=== PATIENT | female | born 1970 | race African-American/Black ===

== ENCOUNTER 2017-01-18 10:21 | Emergency (ER) | payer BC ==
--- NOTE | 2017-01-18 12:07 | CT ---
EXAMINATION: Non contrast CT head. Coronal and sagittal reformats. HISTORY: Knocked unconscious FINDINGS: No evidence of intra or extra axial hemorrhage, mass, midline shift, hydrocephalus or edema. There is a single left periventricular hypodensity. No hypoattenuation changes in the major vascular territories to suggest acute infarct. No abnormal intracranial calcifications are detected. No evidence of substantial vascular calcifica tions. Paranasal sinuses and mastoid air cells are well aerated without substantial findings. Nora bullo sa are noted within the middle turbinates. The orbits and globes are symmetric. Pituitary fossa appears unremarkable. Calvarium is intact. No evidence of skull fracture. IMPRESSION: 1. No acute intracranial findings. 2. Single nonspecific left periventricular hypodensity, possibly early small vessel ischemic changes .
--- NOTE | 2017-01-18 12:13 | CR ---
EXAMINATION: Cervical spine HISTORY: Pain COMPARISON: None TECHNIQUE: AP and lateral views FINDINGS: The cervical spinal alignment is normal. The vertebral body heights and disc spaces appear well-maintained. There is no fracture or dislocation. Facet alignment is normal. Bone mineralizatio n is normal. No acute osseous abnormality demonstrated. IMPRESSION: Grossly unremarkable cervical spine.
--- NOTE | 2017-01-18 12:15 | CR ---
EXAMINATION: Right hand HISTORY: Pain COMPARISON: None TECHNIQUE: 2 views FINDINGS/IMPRESSION: There is no acute osseous abnormality, dislocation, or fracture identified. Bon e mineralization and joint spaces appear normal. The radiocarpal alignment is preserved.
--- NOTE | 2017-01-18 12:19 | EDM.PDOC ---
ED HPI GENERAL MEDICAL PROBLEM - General Chief Complaint: Neck Problem Stated Complaint: PT FELT AND NECK,BACK HURTING Time Seen by Provider: 01/18/17 10:35 Source of Information: Reports: Patient History Limitations: Reports: No limitations - History of Present Illness INITIAL COMMENTS - FREE TEXT/NARRATIVE: History of present illness: [46-year-old female presenting status post slip and fall. Patient indicates she fell backwards striking her head with her arms outstretched. Patient indicates she does not know how long she left leg there your how she got up but when she went to work she noticed her lower back her her right hand her her neck hurts and she is slightly confused about how she even got work.] Review of systems: As per history of present illness and below otherwise all systems reviewed and negative. Past medical history: As per history of present illness and as reviewed below otherwise noncontributory. Surgical history: As per history of present illness and as reviewed below otherwise noncontributory. Social history: No reported history of drug or alcohol abuse. Family history: As per history of present illness and as reviewed below otherwise noncontributory. Physical exam: HEENT: Atraumatic, normocephalic, pupils reactive, negative for conjunctival pallor or scleral icterus, mucous membranes moist, throat clear, neck supple, nontender, trachea midline. Lungs: Clear to auscultation, breath sounds equal bilaterally, chest nontender. Heart: S1S2, regular, negative for clicks, rubs, or JVD. Abdomen: Soft, nondistended, nontender. Negative for masses or hepatosplenomegaly. Negative for costovertebral tenderness. Pelvis: Stable nontender. Genitourinary: Deferred. Rectal: Deferred. Extremities: Atraumatic, negative for cords or calf pain. Neurovascular unremarkable. Neuro: Awake, alert, oriented. Cranial nerves II through XII unremarkable. Cerebellum unremarkable. Motor and sensory unremarkable throughout. Exam nonfocal. Radiographic studies are negative for acute changes. Diagnostics: [X-ray of neck/C-spine right hand, and CT of head] Therapeutics: [] Impression: [Contusion] Plan: [Muscle relaxer, steroid, OTC pain medicine] Definitive disposition and diagnosis as appropriate pending reevaluation and review of above. Back Pain Score (Numeric/FACES): 10 - Related Data Allergies Allergy/AdvReac Type Severity Reaction Status Date / Time No Known Allergies Allergy Verified 11/22/15 09:34 Home Meds: Home Meds Losartan [Cozaar] 100 mg PO DAILY 01/18/17 [History] Orphenadrine [Norflex] 100 mg PO BID #28 tab.er 01/18/17 [Rx] amLODIPine Besylate [Amlodipine Besylate] 5 mg PO DAILY 01/18/17 [History] methylPREDNISolone [Medrol] 4 mg PO DAILY #21 tab.ds.pk 01/18/17 [Rx] Past Medical History Cardiovascular History: Reports: Hypertension [employer] History: Reports: Ectopic Social & Family History - Family History Family Medical History: Noncontributory - Tobacco Use Smoking Status *Q: Never Smoker Second Hand Smoke Exposure: No - Caffeine Use Caffeine Use: Reports: None - Recreational Drug Use Recreational Drug Use: No - Living Situation & Occupation Living situation: Reports: (5 children) ED ROS GENERAL - Review of Systems Review Of Systems: See Below (See history of present illness) ED EXAM, GENERAL - Physical Exam Exam: See Below (History of present illness) Course - Vital Signs Last Recorded V/S: Last Vital Signs Temp 37.1 C 01/18/17 10:40 Pulse 78 01/18/17 10:40 Resp 18 01/18/17 10:40 BP 141/89 H 01/18/17 10:40 Pulse Ox 96 01/18/17 10:40 - Orders/Labs/Meds Orders: Active Orders 24 hr Category Date Time Status Cervical Spine 2V or 3V [CR] Stat Exams 01/18/17 10:35 Taken Hand 2V Rt [CR] Stat Exams 01/18/17 10:36 Ordered Head wo Cont [CT] Stat Exams 01/18/17 10:35 Ordered Labs: Laboratory Tests 01/18/17 Range/Units 11:03 Urine HCG, Qual NEGATIVE (NEGATIVE) Departure - Departure Time of Disposition: 12:21 Disposition: Home, Self-Care 01 Condition: good Clinical Impression: Contusion Instructions: Cervical Sprain, [id number] Forms: ED Department Discharge Additional Instructions: The following information is given to patients seen in the emergency department who are being discharged to home. This information is to outline your options for follow-up care. We provide all patients seen in our emergency department with a follow-up referral. The need for follow-up, as well as the timing and circumstances, are variable depending upon the specifics of your emergency department visit. If you don't have a primary care physician on staff, we will provide you with a referral. We always advise you to contact your personal physician following an emergency department visit to inform them of the circumstance of the visit and for follow-up with them and/or the need for any referrals to a consulting specialist. The emergency department will also refer you to a specialist when appropriate. This referral assures that you have the opportunity for follow-up care with a specialist. All of these measure are taken in an effort to provide you with optimal care, which includes your follow-up. Under all circumstances we always encourage you to contact your private physician who remains a resource for coordinating your care. When calling for follow-up care, please make the office aware that this follow-up is from your recent emergency room visit. If for any reason you are refused follow-up, please contact the [facility] Emergency Department at and asked to speak to the emergency department charge nurse. Take medication as directed Followup with PCP 1-2 days Return to ED as needed as discussed - My Orders Last 24 Hours: My Active Orders 01/18/17 10:35 Cervical Spine 2V or 3V [CR] Stat Head wo Cont [CT] Stat 01/18/17 10:36 Hand 2V Rt [CR] Stat - Assessment/Plan Last 24 Hours: My Active Orders 01/18/17 10:35 Cervical Spine 2V or 3V [CR] Stat Head wo Cont [CT] Stat 01/18/17 10:36 Hand 2V Rt [CR] Stat
[2017-01-18 19:46] VITALS: BP 123/78
== END 2017-01-18 12:28 | disposition home or self-care (01) ==
LOC: MW.ED 10:21
DX: S30.0XXA Contusion of lower back and pelvis, initial encounter (principal); I10 Essential (primary) hypertension; Z79.899 Other long term (current) drug therapy; W01.0XXA Fall on same level from slipping, tripping and stumbling without subsequent striking against object, initial encounter
CPT/HCPCS: 70450; 70450-26; 72040; 72040-26; 73120-26-RT; 73120-RT; 81025; 99283

== ENCOUNTER 2017-06-10 10:01 | Observation (INO) | payer BC ==
[2017-06-10] MEDS ORDERED: Sodium Chloride 0.9% 10 ML Syringe FLUSH PRN (10:17)
[2017-06-10] MEDS ORDERED: Aspirin 81 MG Tab.Chew PO ONE (10:17)
[2017-06-10] MEDS ORDERED: Sodium Chloride 0.9% 2.5 ML Syringe FLUSH PRN (10:17)
[2017-06-10] MEDS: Nitroglycerin 0.4 MG Tab.SL SL STA ×3 (10:22→10:33)
--- NOTE | 2017-06-10 10:23 | EDM.PDOC ---
ED HPI GENERAL MEDICAL PROBLEM - General Chief Complaint: Chest Pain Stated Complaint: CHEST PAIN Time Seen by Provider: 06/10/17 10:11 - History of Present Illness INITIAL COMMENTS - FREE TEXT/NARRATIVE: HISTORY AND PHYSICAL: History of present illness: The patient is a 46-year-old female with a history of hypertension and anxiety who is also gone through her menopause and follows in our clinic with Dr. Bell and presents today with 2 days of episodic chest pain which she describes as midsternal sharp and nonradiating. The patient denies any significant social history and does not take any control and has no significant family history. She states compliance with her medication and with follow-up. She says this is been coming and going for 2 days and is very sharp but only lasted for a short brief period time and then goes away. It does not wake her from sleep and is not associated with nausea abdominal pain back pain shortness of breath or diaphoresis but she says that she sometimes feels hot" with it. Patient has not taken anything for this pain specifically. She has not called her provider in the clinic to discuss this. She has no leg pain or swelling and has had no recent long trips. Patient states she does lifting at work but nothing exceptionally excessive or different than usual. Patient has had no upper respiratory symptoms such as coughing runny nose fever or chills. Currently in the ED the patient rates the discomfort as an 8/10. When asked why she came in today if this is been going on for 2 days she said that it started this morning and it did not seem to go away like prior episodes so she thought she should be seen. Review of systems: As per history of present illness and below otherwise all systems reviewed and negative. Past medical history: As per history of present illness and as reviewed below otherwise noncontributory. Surgical history: As per history of present illness and as reviewed below otherwise noncontributory. Social history: No reported history of drug or alcohol abuse. Family history: As per history of present illness and as reviewed below otherwise noncontributory. Physical exam: Gen.: Well-developed well-nourished female who is nontoxic and vital signs have been reviewed by me. Patient looks very apprehensive in the room but is cooperative HEENT: Atraumatic, normocephalic, negative for conjunctival pallor or scleral icterus, mucous membranes moist, throat clear, neck supple, nontender, trachea midline. Lungs: Clear to auscultation, breath sounds equal bilaterally, chest with some minimal tenderness at palpation of the midsternal lower area but does not completely reproduce the pain, there is no crepitus defects or deformities Heart: S1S2, regular, negative for clicks, rubs, or JVD. Abdomen: Soft, nondistended, nontender. Negative for masses or hepatosplenomegaly. NABS Pelvis: Stable nontender. Genitourinary: Deferred. Rectal: Deferred. Extremities: Atraumatic, negative for cords or calf pain. Neurovascular unremarkable. No pedal edema or leg asymmetry Neuro: Awake, alert, oriented. Cranial nerves II through XII unremarkable. Cerebellum unremarkable. Motor and sensory unremarkable throughout. Exam nonfocal. Diagnostics: EKG CBC CMP amylase lipase INR troponin d-dimer chest x-ray Therapeutics: IV O2 monitor sublingual nitroglycerin aspirin Nitropaste After 3 sublingual nitros the patient only has chest pain "when she touches it" we will place nitroglycerin paste and continue monitoring her testing results All testing results were discussed with the patient and family at bedside and the case was also discussed with the patient's provider who was also air liaison and special staff, Dr. Bell. Patient is agreeable for observation admission to determine the etiology of this problem and Dr. Bell has accepted her for this admission. Impression: Chest pain rule out ACS with history of hypertension Definitive disposition and diagnosis as appropriate pending reevaluation and review of above. Left Chest Pain Score (Numeric/FACES): 8 - Related Data Allergies Allergy/AdvReac Type Severity Reaction Status Date / Time No Known Allergies Allergy Verified 06/10/17 10:06 Home Meds: Home Meds Losartan [Cozaar] 100 mg PO DAILY 01/18/17 [History] amLODIPine Besylate [Amlodipine Besylate] 10 mg PO DAILY 01/18/17 [History] Past Medical History Cardiovascular History: Reports: Hypertension [employer] History: Reports: Ectopic Social & Family History - Family History Family Medical History: Noncontributory - Tobacco Use Smoking Status *Q: Never Smoker Second Hand Smoke Exposure: No - Caffeine Use Caffeine Use: Reports: None - Recreational Drug Use Recreational Drug Use: No - Living Situation & Occupation Living situation: Reports: ED ROS GENERAL - Review of Systems Review Of Systems: ROS reveals no pertinent complaints other than HPI. ED EXAM, GENERAL - Physical Exam Exam: See Below (See dictation) Course - Vital Signs Last Recorded V/S: Last Vital Signs Temp 36.3 C 06/10/17 10:03 Pulse 71 06/10/17 10:31 Resp 16 06/10/17 10:31 BP 125/87 06/10/17 10:33 Pulse Ox 97 06/10/17 10:32 - Orders/Labs/Meds Orders: Active Orders 24 hr Category Date Time Status Patient Status [ADT] Stat ADT 06/10/17 11:38 Ordered Cardiac Monitoring [RC] . DIRECTED Care 06/10/17 10:12 Active EKG Documentation Completion [RC] STAT Care 06/10/17 10:12 Active Oxygen Therapy, ED [RC] ASDIRECTED Care 06/10/17 10:12 Active Pulse Oximetry [RC] ASDIRECTED Care 06/10/17 10:12 Active Sodium Chloride 0.9% [Saline Flush] Med 06/10/17 10:17 Active 10 ml FLUSH ASDIRECTED PRN Sodium Chloride 0.9% [Saline Flush] Med 06/10/17 10:17 Active 2.5 ml FLUSH ASDIRECTED PRN Saline Lock Insert [OM.PC] Stat Oth 06/10/17 10:12 Ordered Medication Orders Sodium Chloride (Saline Flush) 10 ml FLUSH ASDIRECTED PRN PRN Reason: Keep Vein Open Sodium Chloride (Saline Flush) 2.5 ml FLUSH ASDIRECTED PRN PRN Reason: Keep Vein Open Labs: Laboratory Tests 06/10/17 06/10/17 06/10/17 Range/Units 10:09 10:09 10:09 WBC 3.73 L (4.0-11.0) K/uL RBC 4.76 (4.30-5.90) M/uL Hgb 13.3 (12.0-16.0) g/dL Hct 38.4 (36.0-46.0) % MCV 80.7 (80.0-98.0) fL MCH 27.9 (27.0-32.0) pg MCHC 34.6 (31.0-37.0) g/dL RDW Std Deviation 39.1 (28.0-62.0) fl RDW Coeff of Camille 13 (11.0-15.0) % Plt Count 215 (150-400) K/uL MPV 10.90 (7.40-12.00) fL Neut % (Auto) 47.5 L (48.0-80.0) % Lymph % (Auto) 40.5 H (16.0-40.0) % Bladen % (Auto) 7.5 (0.0-15.0) % Eos % (Auto) 4.0 (0.0-7.0) % Baso % (Auto) 0.5 (0.0-1.5) % Neut # (Auto) 1.8 (1.4-5.7) K/uL Lymph # (Auto) 1.5 (0.6-2.4) K/uL Bladen # (Auto) 0.3 (0.0-0.8) K/uL Eos # (Auto) 0.2 (0.0-0.7) K/uL Baso # (Auto) 0.0 (0.0-0.1) K/uL Nucleated RBC % 0.0 /100WBC Nucleated RBCs # 0 K/uL INR 1.07 (0.86-1.11) D-Dimer, Quantitative (0.0-0.52) mg/LFEU Sodium 140 (136-146) mmol/L Potassium 3.5 (3.5-5.1) mmol/L Chloride 105 (98-110) mmol/L Carbon Dioxide 28 (21-31) mmol/L BUN 10 (6.0-23.0) mg/dL Creatinine 0.8 (0.6-1.5) mg/dL Est Cr Clr Drug Dosing 79.91 mL/min Estimated GFR (MDRD) > 60.0 ml/min Glucose 93 (60-110) mg/dL Calcium 9.6 (8.8-10.8) mg/dL Total Bilirubin 0.6 (0.1-1.5) mg/dL AST 20 (5-40) IU/L ALT 22 (8-54) IU/L Alkaline Phosphatase 87 (40-150) Troponin I (0.0-0.29) NG/ML Total Protein 7.7 (6.0-8.0) g/dL Albumin 4.2 (3.5-5.0) g/dL Globulin 3.5 (2.0-3.5) g/dL Albumin/Globulin Ratio 1.2 L (1.3-2.8) Amylase 106 H (10-90) U/L Lipase 17 (7-80) U/L 06/10/17 06/10/17 Range/Units 10:09 10:09 WBC (4.0-11.0) K/uL RBC (4.30-5.90) M/uL Hgb (12.0-16.0) g/dL Hct (36.0-46.0) % MCV (80.0-98.0) fL MCH (27.0-32.0) pg MCHC (31.0-37.0) g/dL RDW Std Deviation (28.0-62.0) fl RDW Coeff of Camille (11.0-15.0) % Plt Count (150-400) K/uL MPV (7.40-12.00) fL Neut % (Auto) (48.0-80.0) % Lymph % (Auto) (16.0-40.0) % Bladen % (Auto) (0.0-15.0) % Eos % (Auto) (0.0-7.0) % Baso % (Auto) (0.0-1.5) % Neut # (Auto) (1.4-5.7) K/uL Lymph # (Auto) (0.6-2.4) K/uL Bladen # (Auto) (0.0-0.8) K/uL Eos # (Auto) (0.0-0.7) K/uL Baso # (Auto) (0.0-0.1) K/uL Nucleated RBC % /100WBC Nucleated RBCs # K/uL INR (0.86-1.11) D-Dimer, Quantitative 0.43 (0.0-0.52) mg/LFEU Sodium (136-146) mmol/L Potassium (3.5-5.1) mmol/L Chloride (98-110) mmol/L Carbon Dioxide (21-31) mmol/L BUN (6.0-23.0) mg/dL Creatinine (0.6-1.5) mg/dL Est Cr Clr Drug Dosing mL/min Estimated GFR (MDRD) ml/min Glucose (60-110) mg/dL Calcium (8.8-10.8) mg/dL Total Bilirubin (0.1-1.5) mg/dL AST (5-40) IU/L ALT (8-54) IU/L Alkaline Phosphatase (40-150) Troponin I < 0.10 (0.0-0.29) NG/ML Total Protein (6.0-8.0) g/dL Albumin (3.5-5.0) g/dL Globulin (2.0-3.5) g/dL Albumin/Globulin Ratio (1.3-2.8) Amylase (10-90) U/L Lipase (7-80) U/L Meds: Medications Generic Name Dose Route Start Last Admin Trade Name Freq PRN Reason Stop Dose Admin Sodium Chloride 10 ml 06/10/17 10:17 Saline Flush FLUSH ASDIRECTED PRN Keep Vein Open Sodium Chloride 2.5 ml 06/10/17 10:17 Saline Flush FLUSH ASDIRECTED PRN Keep Vein Open Discontinued Medications Generic Name Dose Route Start Last Admin Trade Name Freq PRN Reason Stop Dose Admin Aspirin 324 mg 06/10/17 10:17 06/10/17 10:24 Aspirin PO 06/10/17 10:18 324 mg ONETIME ONE Administration Nitroglycerin 0.4 mg 06/10/17 10:17 06/10/17 10:33 Nitrostat SL 06/10/17 10:18 0.4 mg Q5M STA Administration Nitroglycerin 0.5 gm 06/10/17 10:38 06/10/17 10:52 Nitro-Bid 2% TOP 06/10/17 10:39 0.5 gm ONETIME ONE Administration Departure - Departure Time of Disposition: 11:41 Disposition: Refer to Observation Condition: Good Clinical Impression: Acute coronary syndrome Chest pain Qualifiers: Chest pain type: other chest pain Qualified Code(s): R07.89 - Other chest pain ; R07.8 - Other chest pain - Discharge Information Referrals: PCP,None [Primary Care Provider] - Forms: ED Department Discharge - My Orders Last 24 Hours: My Active Orders 06/10/17 10:12 Cardiac Monitoring [RC] . DIRECTED EKG Documentation Completion [RC] STAT Oxygen Therapy, ED [RC] ASDIRECTED Pulse Oximetry [RC] ASDIRECTED Saline Lock Insert [OM.PC] Stat 06/10/17 10:17 Sodium Chloride 0.9% [Saline Flush] 10 ml FLUSH ASDIRECTED PRN Sodium Chloride 0.9% [Saline Flush] 2.5 ml FLUSH ASDIRECTED PRN 06/10/17 11:38 Patient Status [ADT] Stat - Assessment/Plan Last 24 Hours: My Active Orders 06/10/17 10:12 Cardiac Monitoring [RC] . DIRECTED EKG Documentation Completion [RC] STAT Oxygen Therapy, ED [RC] ASDIRECTED Pulse Oximetry [RC] ASDIRECTED Saline Lock Insert [OM.PC] Stat 06/10/17 10:17 Sodium Chloride 0.9% [Saline Flush] 10 ml FLUSH ASDIRECTED PRN Sodium Chloride 0.9% [Saline Flush] 2.5 ml FLUSH ASDIRECTED PRN 06/10/17 11:38 Patient Status [ADT] Stat
[2017-06-10] MEDS ORDERED: Nitroglycerin 2% Oint 1 GM UD Packet TOP ONE (10:38)
[2017-06-10 10:49] LABS: CHLORIDE,CL 105 mmol/L (98-110); SODIUM,NA 140 mmol/L (136-146)
--- NOTE | 2017-06-10 10:54 | CR ---
EXAMINATION: Portable chest radiograph. HISTORY: Shortness of breath. FINDINGS: The trachea is midline. The cardiomediastinal silhouette is within normal limits. No pulmonary infilt rates, effusions or pneumothorax. Osseous structures appear unremarkable. IMPRESSION: No acute cardiopulmonary process.
[2017-06-10] MEDS ORDERED: Ketorolac 30 MG/ML SDV IVPUSH ONE (12:37)
[2017-06-10] MEDS ORDERED: Ondansetron 4 MG/2 ML SDV IVPUSH PRN (12:42)
--- NOTE | 2017-06-10 13:01 | PCM.HP ---
H&P History of Present Illness - General Date of Service: 06/10/17 Admit Problem/Dx: Admission Diagnosis/Problem Admission Diagnosis/Problem Chest pain Source of Information: Patient History Limitations: Reports: No Limitations - History of Present Illness Initial Comments - Free Text/Narative: This 46 year old AA female with PMH of HTN presented to the ED today with concerns on substernal chest pain that comes and goes for the past 2 days. She reports this pain as sharp shooting and comes on quickly then disappears quickly. The pain is worse with deep breaths and pressing her sternum. She denies it being worse with activity and can't tie it to anything it just happens. She denies heartburn, SOB, palpitations N/V, or abdominal pain. She denies cough, but has complained of some subjective fever and chills at home. No urinary symptoms. She reports no known family history of cardiac disease or DM. She is complaint with home medications. Denies any recent trauma or injuries. In the ED WBC 3,730, BMP WNL. amylase slightly elevated 106, lipase 17. VS stable and CXR negative. EKG x [address] segment changes. She will be admitted for chest pain R/O ACS PCP, Dr. Bell Left Chest Pain Score (Numeric/FACES): 8 Headache Pain Score (Numeric/FACES): 5 - Related Data Allergies/Adverse Reactions: Allergies Allergy/AdvReac Type Severity Reaction Status Date / Time No Known Allergies Allergy Verified 06/10/17 10:06 Home Medications: Home Meds Losartan [Cozaar] 100 mg PO DAILY 01/18/17 [History] amLODIPine Besylate [Amlodipine Besylate] 10 mg PO DAILY 01/18/17 [History] Acetaminophen [Tylenol] 650 mg PO Q4H PRN #30 tablet 06/11/17 [Rx] Past Medical History Cardiovascular History: Reports: Hypertension. Denies: Afib, Blood Clots/VTE/ DVT, CAD, High Cholesterol, OK Respiratory History: Reports: None. Denies: COPD, PE, SOB Gastrointestinal History: Reports: Other (See Below) (heartburn intermittently) . 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 Denies: HIV-Human Immunodeficiency Virus, MRSA, VRE Social & Family History - Family History Family Medical History: Noncontributory - Tobacco Use Smoking Status *Q: Never Smoker Second Hand Smoke Exposure: No - Caffeine Use Caffeine Use: Reports: None - Alcohol Use Alcohol Use History: No - Recreational Drug Use Recreational Drug Use: No - Living Situation & Occupation Living situation: Reports: H&P Review of Systems - Review of Systems: Review Of Systems: See Below General: Reports: Fever, Chills (subjective at home). Denies: Malaise, Diaphoresis, Weight Loss HEENT: Reports: No Symptoms. Denies: Ear Pain, Sinus Congestion, Sore Throat, Visual Changes Pulmonary: Reports: No Symptoms. Denies: Pleuritic Chest Pain, Cough, Sputum Cardiovascular: Reports: Chest Pain (substernal with deep breathing and palpation) Gastrointestinal: Reports: No Symptoms, Flatus. Denies: Abdominal Pain, Black Stool, Bloody Stool, Nausea, Vomiting Genitourinary: Reports: No Symptoms. Denies: Dysuria, Frequency, Burning, Pain Skin: Reports: No Symptoms Psychiatric: Reports: No Symptoms, Anxiety Neurological: Reports: No Symptoms Hematologic/Lymphatic: Reports: No Symptoms Immunologic: Reports: No Symptoms Exam - Exam Exam: See Below - Vital Signs Vital Signs: Last Vital Signs Temp 97.3 F 06/10/17 10:03 Pulse 71 06/10/17 10:31 Resp 16 06/10/17 10:31 BP 125/87 06/10/17 10:33 Pulse Ox 97 06/10/17 10:32 Weight: 72.1 kg - Exam General: Alert, Oriented, Cooperative HEENT: PERRLA, Hearing Intact, Mucosa Moist & [place], Nares Patent, Normal Nasal Septum, Posterior Pharynx Clear, Conjunctiva Clear, EOMI, EACs Clear, TMs Clear Lungs: Clear to Auscultation, Normal Respiratory Effort Cardiovascular: Regular Rate, Regular Rhythm, Other (tender to palpation of distal sternum. Reproduces pain she is experiencing ). No: Systolic Murmur GI/Abdominal Exam: Normal Bowel Sounds, Soft, Non-Tender, No Organomegaly, No Distention, No Abnormal Bruit, No Mass, Pelvis Stable Extremities: Normal Inspection, Normal Range of Motion, Non-Tender, No Pedal Edema, Normal Capillary Refill Neuro Extensive - Mental Status: Alert, Oriented x3, Normal Mood/Affect Psychiatric: Alert, Normal Affect, Normal Mood - Patient Data Result Diagrams: 06/10/17 10:09 06/10/17 10:09 *Q Meaningful Use (ADM) - VTE *Q VTE Criteria *Q: - VTE Risk Assess *Q Each Risk Factor Represents 1 Point: Age 41 - 59 years Total Score 1 Point Risk Factors: 1 Each Risk Factor Represents 2 Points: None Total Score 2 Point Risk Factors: 0 Each Risk Factor Represents 3 Points: None Total Score 3 Point Risk Factors: 0 Each Risk Factor Represents 5 Points: None Total Score 5 Point Risk Factors: 0 Venous Thromboembolism Risk Factor Score *Q: 1 - Stroke *Q Stroke Criteria *Q: - AMI *Q AMI Criteria *Q: - Problem List (1) Atypical chest pain SNOMED Code(s): 082617259 ICD Code: R07.89 - OTHER CHEST PAIN Status: Acute Current Visit: Yes (2) Anxiety SNOMED Code(s): 36669392 ICD Code: F41.9 - ANXIETY DISORDER, UNSPECIFIED Status: Acute Current Visit: No (3) History of high blood pressure SNOMED Code(s): 222843628 ICD Code: Z86.79 - PERSONAL HISTORY OF OTHER DISEASES OF THE CIRCULATORY SYSTEM Status: Chronic Current Visit: No Problem List Initiated/Reviewed/Updated: Yes Orders Last 24hrs: Active Orders 24 hr Category Date Time Status Antiembolic Devices [RC] PER UNIT ROUTINE Care 06/10/17 12:43 Active EKG Documentation Completion [RC] STAT Care 06/10/17 12:37 Active Intake and Output [RC] QSHIFT Care 06/10/17 12:42 Active Oxygen Therapy [RC] PRN Care 06/10/17 12:42 Active Telemetry Monitoring [Cardiac Monitoring] [RC] . Care 06/10/17 12:46 Active DIRECTED Up ad Debbie [RC] ASDIRECTED Care 06/10/17 12:42 Active VTE/DVT Education [RC] PER UNIT ROUTINE Care 06/10/17 12:42 Active Vital Signs [RC] Q4H Care 06/10/17 12:42 Active Heart Healthy Diet [DIET] Diet 06/10/17 Lunch Active GLYCOSYLATED HEMOGLOBIN,HGBA1C [CHEM] Routine Lab 06/10/17 10:09 Received LIPID PANEL [CHEM] Routine Lab 06/10/17 10:09 Received TROPONIN I [CHEM] Q6H Lab 06/10/17 16:00 Ordered TROPONIN I [CHEM] Q6H Lab 06/10/17 22:00 Ordered Acetaminophen [Tylenol] Med 06/10/17 12:42 Active 650 mg PO Q4H PRN Losartan [Cozaar] Med 06/11/17 09:00 Active 100 mg PO DAILY Ondansetron [Zofran] Med 06/10/17 12:42 Active 4 mg IVPUSH Q4H PRN amLODIPine [Norvasc] Med 06/11/17 09:00 Active 10 mg PO DAILY Sequential Compression Device [OM.PC] Per Unit Routine Oth 06/10/17 12:42 Ordered Resuscitation Status Routine Resus Stat 06/10/17 12:42 Ordered Medication Orders Acetaminophen (Tylenol) 650 mg PO Q4H PRN PRN Reason: Pain Amlodipine Besylate (Norvasc) 10 mg PO DAILY KIZZY Losartan Potassium (Cozaar) 100 mg PO DAILY KIZZY Ondansetron HCl (Zofran) 4 mg IVPUSH Q4H PRN PRN Reason: Nausea Sodium Chloride (Saline Flush) 10 ml FLUSH ASDIRECTED PRN PRN Reason: Keep Vein Open Sodium Chloride (Saline Flush) 2.5 ml FLUSH ASDIRECTED PRN PRN Reason: Keep Vein Open Assessment/Plan Comment:: This 46 year old female admitted with atypical chest pain, R/O ACS 1. Atypical chest pain: Likely musculoskeletal in nature. Will trend Troponins and monitor on telemetry. Will obtain lipid panel and A1c. Tylenol and [place] for pain PRN. 2. HTN: Continue Norvasc and Losartan. VTE prophylaxis: SCDs Dispo: Likely in am, pending labwork rule out. DISCHARGE PLAN: Discharge diagnoses: Atypical chest pain, likely musculoskeletal. HTN Inez was admitted on observation for atypical chest pain. Pain was reproducible with palpation to sternum. EKG remains SR with no ST segment changes. Troponins negative. She will be discharged today. A1c pending, was sent to reference lab due to variant see. Hematology recommended further investigation due to variant seen, including thalassemia and sickle cell work up. Patient is aware of these pending labs as is PCP, Dr. Bell for follow up. She has no further pain and is wanting to be discharged home. Will arrange follow up with PCP next week. Will not arrange outpatient stress test at this time, will leave to discretion of PCP due to atypical type of chest pain, likely musculoskeletal in nature. HTN controlled. She was encouraged to return to ED or clinic if concerns should arise.
[2017-06-10] MEDS ORDERED: Acetaminophen/HYDROcodone 325-5 MG Tab PO PRN (13:34)
[2017-06-10] MEDS: Acetaminophen 325 MG Tab PO PRN ×2 (15:10→20:13)
[2017-06-11 08:51] VITALS: BP 117/76
[2017-06-11] MEDS ORDERED: Losartan 50 MG Tab PO SCH (09:00)
[2017-06-11] MEDS ORDERED: amLODIPine 5 MG Tab PO SCH (09:00)
== END 2017-06-11 10:35 | disposition home or self-care (01) ==
LOC: MW.ED 10:01 → UNDOADMOB 11:38 → MW.MS 11:38
PROVIDERS: ADMIT Internal Medicine; ATTEND Internal Medicine
DX: R07.89 Other chest pain (principal); I10 Essential (primary) hypertension; F41.9 Anxiety disorder, unspecified; Z79.899 Other long term (current) drug therapy
CPT/HCPCS: 36415; 71010; 80053; 80061; 82150; 83036; 83690; 84484; 85025; 85379; 85610; 93005; 96374; 99285; A9270; G0378; J1885; 99283

== ENCOUNTER 2019-02-06 23:25 | Emergency (ER) | payer BC ==
[2019-02-06] MEDS ORDERED: Diphtheria,Pertussis(Acell),Tetanus Vaccine 0.5 ML Syringe IM ONE (23:39)
--- NOTE | 2019-02-06 23:42 | EDM.PDOC ---
ED HPI GENERAL MEDICAL PROBLEM - General Chief Complaint: Lower Extremity Injury/Pain Stated Complaint: CUT ON RT LEG Time Seen by Provider: 02/06/19 23:36 - History of Present Illness INITIAL COMMENTS - FREE TEXT/NARRATIVE: HISTORY AND PHYSICAL: History of present illness: The patient is a 48-year-old female who presents with complaints of a cut to the dorsal aspect of her right foot that occurred in her kitchen while she was cooking food this evening. The patient says she was in her usual state of good health with no systemic complaints and this happened. She is unsure which he dropped but it broke and glass cut the dorsal aspect of the foot without any other injuries. She is unsure of her last tetanus shot. She has no bony pain and she is able to move her toes she complains of pain at the laceration Review of systems: As per history of present illness and below otherwise all systems reviewed and negative. Past medical history: As per history of present illness and as reviewed below otherwise noncontributory. Surgical history: As per history of present illness and as reviewed below otherwise noncontributory. Social history: No reported history of drug or alcohol abuse. Family history: As per history of present illness and as reviewed below otherwise noncontributory. Physical exam: HEENT: Atraumatic, normocephalic, negative for conjunctival pallor or scleral icterus, mucous membranes moist, throat clear, neck supple, nontender, trachea midline. Lungs: Clear to auscultation, breath sounds equal bilaterally, chest nontender. Heart: S1S2, regular rate and rhythm rhythm no overt murmurs Abdomen: Soft, nondistended, nontender. NABS Pelvis: Stable nontender. Genitourinary: Deferred. Rectal: Deferred. Extremities: Atraumatic and full range of motion of all extremities with the exception of the right foot where there is a 3.25 cm laceration seen on the medial aspect of the soft tissue foot. It is only to the subcutaneous fat. There is no active bleeding and there are no palpable bony deformities or crepitus. Patient has full range of motion of the foot ankle and toes., negative for cords or calf pain. Neurovascular unremarkable. Neuro: Awake, alert, oriented. Cranial nerves II through XII unremarkable. Cerebellum unremarkable. Motor and sensory unremarkable throughout. Exam nonfocal. Diagnostics: [] Therapeutics: Tdap, wound irrigation and cleansing ,bacitracin, dressing Lido with epi Procedure note: After the procedure was explained to the patient and the wound was irrigated by nursing 1% lidocaine with epinephrine was infused locally and the wound was prepped and draped in sterile fashion. The wound was explored and no foreign bodies were appreciated. The skin edges were reapproximated using a total number of # 6 simple interrupted sutures of 4-0 nylon. There were no complications and the patient tolerated the procedure well. Bacitracin and a gauze dressing was placed by nursing. Impression: Laceration of right foot Definitive disposition and diagnosis as appropriate pending reevaluation and review of above. 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 Denies: HIV-Human Immunodeficiency Virus, MRSA, VRE - Past Surgical History Head Surgeries/Procedures: Reports: None HEENT Surgical History: Reports: None Musculoskeletal Surgical History: Reports: None Oncologic Surgical History: Reports: None Dermatological Surgical History: Reports: None Social & Family History - Family History Family Medical History: Noncontributory - Tobacco Use Smoking Status *Q: Never Smoker - Caffeine Use Caffeine Use: Reports: None - Recreational Drug Use Recreational Drug Use: No - Living Situation & Occupation Living situation: Reports: Review of Systems - Review of Systems Review Of Systems: ROS reveals no pertinent complaints other than HPI. ED EXAM, GENERAL - Physical Exam Exam: See Below (See dictation) Course - Vital Signs Last Recorded V/S: Last Vital Signs Temp 36.6 C 02/06/19 23:28 Pulse 73 02/06/19 23:28 Resp BP 124/80 02/06/19 23:28 Pulse Ox 95 02/06/19 23:28 - Orders/Labs/Meds Orders: Active Orders 24 hr Category Date Time Status Communication Order [RC] STAT Care 02/06/19 23:39 Active Vaccines to be Administered [RC] PER UNIT ROUTINE Care 02/06/19 23:39 Active Meds: Medications Discontinued Medications Generic Name Dose Route Start Last Admin Trade Name Moriah PRN Reason Stop Dose Admin Bacitracin 1 dose 02/07/19 00:11 Bacitracin Oint 1 Gm TOP 02/07/19 00:12 ONETIME ONE Diphtheria/Tetanus/Acell Pertussis 0.5 ml 02/06/19 23:39 Adacel IM 02/06/19 23:40 .ONCE ONE Lidocaine/Epinephrine 20 ml 02/07/19 00:11 Xylocaine 1% With Epinephrine 1:100,000 INJECT 02/07/19 00:12 ONETIME ONE Departure - Departure Time of Disposition: 00:39 Disposition: Home, Self-Care 01 Condition: Good Clinical Impression: Laceration of foot Qualifiers: Encounter type: initial encounter Laterality: right Qualified Code(s): S91.311A - Laceration without foreign body, right foot, initial encounter - Discharge Information Referrals: PCP,None [Primary Care Provider] - Forms: ED Department Discharge Additional Instructions: The following information is given to patients seen in the emergency department who are being discharged to home. This information is to outline your options for follow-up care. We provide all patients seen in our emergency department with a follow-up referral. The need for follow-up, as well as the timing and circumstances, are variable depending upon the specifics of your emergency department visit. If you don't have a primary care physician on staff, we will provide you with a referral. We always advise you to contact your personal physician following an emergency department visit to inform them of the circumstance of the visit and for follow-up with them and/or the need for any referrals to a consulting specialist. The emergency department will also refer you to a specialist when appropriate. This referral assures that you have the opportunity for followup care with a specialist. All of these measure are taken in an effort to provide you with optimal care, which includes your followup. Under all circumstances we always encourage you to contact your private physician who remains a resource for coordinating your care. When calling for followup care, please make the office aware that this follow-up is from your recent emergency room visit. If for any reason you are refused follow-up, please contact the [facility] emergency department at and ask to speak to the emergency department charge nurse. [facility] Primary care- Internal Medicine and Family [address] [address] Please keep the dressing on that was placed here in the ED until tomorrow night and then remove it and cleanse with mild soap and water pat dry and apply bacitracin or Neosporin. Please cleanse the wound at least twice a day and use the ointment for the next 2 days and then stop. If you need to cover the area please use a breathable gauze dressing and do not place Band-Aids on it as this will delay wound healing. He will use [id number] medications for pain management such as Tylenol and ibuprofen. The sutures need to be removed in 7- 10 days here in the emergency department or with your provider in the clinic. Return to the ER sooner as needed and as discussed - My Orders Last 24 Hours: My Active Orders 02/06/19 23:39 Communication Order [RC] STAT Vaccines to be Administered [RC] PER UNIT ROUTINE - Assessment/Plan Last 24 Hours: My Active Orders 02/06/19 23:39 Communication Order [RC] STAT Vaccines to be Administered [RC] PER UNIT ROUTINE
[2019-02-07] MEDS ORDERED: Lidocaine 1% with EPINEPHrine 1:100,000 20 ML MDV INJECT ONE (00:11)
[2019-02-07] MEDS ORDERED: Bacitracin Oint 1 GM U/D Packet TOP ONE (00:11)
[2019-02-07 01:06] VITALS: BP 117/79
== END 2019-02-07 01:05 | disposition home or self-care (01) ==
LOC: MW.ED 23:25
DX: S91.311A Laceration without foreign body, right foot, initial encounter (principal); I12.9 Hypertensive chronic kidney disease with stage 1 through stage 4 chronic kidney disease, or unspecified chronic kidney disease; E11.22 Type 2 diabetes mellitus with diabetic chronic kidney disease; N18.9 Chronic kidney disease, unspecified; Y93.G3 Activity, cooking and baking; Y92.000 Kitchen of unspecified non-institutional (private) residence as the place of occurrence of the external cause; Z23 Encounter for immunization; Z79.899 Other long term (current) drug therapy; W45.8XXA Other foreign body or object entering through skin, initial encounter
CPT/HCPCS: 90471; 90715; 99283

== ENCOUNTER 2019-08-03 06:01 | Emergency (ER) | payer BC ==
[2019-08-03 06:18] VITALS: BP 163/99; PULSE 66
--- NOTE | 2019-08-03 06:30 | EDM.PDOC ---
ED HPI GENERAL MEDICAL PROBLEM - General Chief Complaint: Skin Complaint Stated Complaint: BOIL UNDER RIGHT ARM Time Seen by Provider: 08/03/19 06:25 - History of Present Illness INITIAL COMMENTS - FREE TEXT/NARRATIVE: HISTORY AND PHYSICAL: History of present illness: Patient's 49-year-old black female presents with a concern of pain in her right axilla and possible abscess patient denies fever chills nausea vomiting or other complaints Review of systems: As per history of present illness and below otherwise all systems reviewed and negative. Past medical history: As per history of present illness and as reviewed below otherwise noncontributory. Surgical history: As per history of present illness and as reviewed below otherwise noncontributory. Social history: No reported history of drug or alcohol abuse. Family history: As per history of present illness and as reviewed below otherwise noncontributory. Physical exam: HEENT: Atraumatic, normocephalic, pupils reactive, negative for conjunctival pallor or scleral icterus, mucous membranes moist, throat clear, neck supple, nontender, trachea midline. Lungs: Clear to auscultation, breath sounds equal bilaterally, chest nontender. Heart: S1S2, regular, negative for clicks, rubs, or JVD. Abdomen: Soft, nondistended, nontender. Negative for masses or hepatosplenomegaly. Negative for costovertebral tenderness. Pelvis: Stable nontender. Genitourinary: Deferred. Rectal: Deferred. Extremities: Right axilla has multiple tender nodules there is no erythema or warmth there is no clear fluctuance there is moderate induration. Neuro: Awake, alert, oriented. Cranial nerves II through XII unremarkable. Cerebellum unremarkable. Motor and sensory unremarkable throughout. Exam nonfocal. Diagnostics: None Therapeutics: None Impression: #1 folliculitis right axilla rule out adenitis versus early abscess formation Definitive disposition and diagnosis as appropriate pending reevaluation and review of above. 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 , Musculoskeletal History: Reports: None Neurological History: Reports: None Psychiatric History: Reports: None Endocrine/Metabolic History: Reports: None 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 Hematologic History: Reports: None Immunologic History: Reports: None Oncologic (Cancer) History: Reports: None Dermatologic History: Reports: None - Infectious Disease History Infectious Disease History: Reports: None - Past Surgical History Head Surgeries/Procedures: Reports: None HEENT Surgical History: Reports: None Female Surgical History: Reports: Tubal Ligation Musculoskeletal Surgical History: Reports: None Oncologic Surgical History: Reports: None Dermatological Surgical History: Reports: None Social & Family History - Family History Family Medical History: Noncontributory - Tobacco Use Smoking Status *Q: Never Smoker - Caffeine Use Caffeine Use: Reports: Coffee - Recreational Drug Use Recreational Drug Use: No - Living Situation & Occupation Living situation: Reports: ED ROS GENERAL - Review of Systems Review Of Systems: ROS reveals no pertinent complaints other than HPI. ED EXAM, SKIN/RASH Exam: See Below (See dictation) Course - Vital Signs Last Recorded V/S: Last Vital Signs Temp 36 C 08/03/19 06:15 Pulse 66 08/03/19 06:15 Resp 18 08/03/19 06:15 BP 163/99 H 08/03/19 06:15 Pulse Ox 100 08/03/19 06:15 - Orders/Labs/Meds Meds: Medications Discontinued Medications Generic Name Dose Route Start Last Admin Trade Name Moriah PRN Reason Stop Dose Admin Lidocaine HCl 5 ml 08/03/19 06:13 Xylocaine-Mpf 1% INJECT 08/03/19 06:14 ONETIME ONE Departure - Departure Time of Disposition: 06:28 Disposition: Home, Self-Care 01 Condition: Good Clinical Impression: Folliculitis, Adenitis - Discharge Information Referrals: Katarina Moura PA [Primary Care Provider] - Additional Instructions: The following information is given to patients seen in the emergency department who are being discharged to home. This information is to outline your options for follow-up care. We provide all patients seen in our emergency department with a follow-up referral. The need for follow-up, as well as the timing and circumstances, are variable depending upon the specifics of your emergency department visit. If you don't have a primary care physician on staff, we will provide you with a referral. We always advise you to contact your personal physician following an emergency department visit to inform them of the circumstance of the visit and for follow-up with them and/or the need for any referrals to a consulting specialist. The emergency department will also refer you to a specialist when appropriate. This referral assures that you have the opportunity for followup care with a specialist. All of these measure are taken in an effort to provide you with optimal care, which includes your followup. Under all circumstances we always encourage you to contact your private physician who remains a resource for coordinating your care. When calling for followup care, please make the office aware that this follow-up is from your recent emergency room visit. If for any reason you are refused follow-up, please contact the [facility] emergency department at and asked to speak to the emergency department charge nurse. FERNIE [facility] Specialty Care - General Surgery Professional Building [address] [place] [address], [address] [place] [address] Keflex Tylenol 3 as prescribed follow-up Gen. surgery above return as needed as discussed
== END 2019-08-03 06:45 | disposition home or self-care (01) ==
LOC: MW.ED 06:01
DX: L73.9 Follicular disorder, unspecified (principal); I88.9 Nonspecific lymphadenitis, unspecified; I10 Essential (primary) hypertension; Z79.899 Other long term (current) drug therapy
CPT/HCPCS: 99282

== ENCOUNTER 2022-02-24 14:40 | Emergency (ER) | payer SELFPAY ==
[2022-02-24] MEDS ORDERED: Ketorolac 30 MG/ML SDV IM ONE (15:30)
[2022-02-24] MEDS ORDERED: Diazepam 5 MG Tab PO ONE (15:30)
[2022-02-24] MEDS ORDERED: Dexamethasone 10 MG/ML SDV IM STA (15:30)
[2022-02-24 17:04] VITALS: BP 151/89; PULSE 71
== END 2022-02-24 16:58 | disposition home or self-care (01) ==
LOC: MW.ED 14:40
DX: M54.12 Radiculopathy, cervical region (principal); I10 Essential (primary) hypertension; Z79.899 Other long term (current) drug therapy
CPT/HCPCS: 73030; 96372; 99283; A9270; J1100; J1885